=== PATIENT | male | born 1960 | race Caucasian/White ===

== ENCOUNTER 2017-12-16 11:19 | Outpatient (CLI) | payer BC ==
[~2017-12-16 11:19] MED LIST: IBUPROFEN600 MG PO; NORCO 5-325 TA1 EACH ORAL; RANITIDINE HCL300 M2 ORAL; SIMVASTATIN5 MG ORAL; TESTIM5 GM TD
--- NOTE | 2017-12-16 13:36 | Diagnostic Imaging Report ---
Indication: , Technique: 2 views of the chest Comparison: None Findings: Lungs and pleural spaces are clear. The heart size is normal. The bones are unremarkable. Impression: Negative
== END 2017-12-16 13:19 | disposition home or self-care (01) ==
LOC: RAD 11:19
DX: Z01.818 Encounter for other preprocedural examination (principal); Z01.812 Encounter for preprocedural laboratory examination
CPT/HCPCS: 71046

== ENCOUNTER → 2019-01-15 | Outpatient (CLI) | payer BC ==
--- NOTE | 2019-01-15 11:13 | Diagnostic Imaging Report ---
Indication: Cough Technique: 2 views of the chest Comparison: 12/16/2017 Findings: Lungs and pleural spaces are clear. The heart size is normal. The bones are unremarkable. No significant interim change. Impression: Negative
== END | disposition home or self-care (01) ==
LOC: RAD 09:44
DX: Z01.818 Encounter for other preprocedural examination (principal); R05 Cough
CPT/HCPCS: 71046